=== PATIENT | male | born 1955 | race Caucasian/White ===

== ENCOUNTER 2020-07-20 18:10 | Emergency (ER) | payer OTHER ==
[~2020-07-20] VITALS: Ht 177.8 cm; Wt 77.1 kg
--- OUTSIDE RECORDS SUMMARY | ~2020-07-20 | XMS | Encounter Summary ---
Demographics + + + | Address | [address] | | | [place] [address] | + + + | Home Phone | | + + + | Preferred Language | Unknown | + + + | Marital Status | | + + + | Christianity Affiliation | Unknown | + + + | Race | White | + + + | Ethnic Group | Not or | + + + Author + + + | Author | [facility] | | | and [place] | + + + | Organization | [facility] | | | and [place] | + + + | Address | Unknown | + + + | Phone | Unavailable | + + + Support + + +---------+ + | Name | Relationship | Address | Phone | + + +---------+ + | Millie Clay | ECON | Unknown | | + + +---------+ + | Mariama Schwab | ECON | Unknown | | + + +---------+ + Care Team Providers + +------+ + | Care Ceramics Technician Name | Role | Phone | + +------+ + PCP | Unavailable | + +------+ + Reason for Referral Self-referral (Routine) +--------+ + + + + + | Status | Reason | Specialty | Diagnoses / | Referred By | Referred To | | | | | Procedures | Contact | Contact | +--------+ + + + + + | Closed | Specialty | Physical | Diagnoses | Watson, | [facility] | | | Services | Therapy | Weakness | [facility] Haynes, | [facility]PITAL | | | Required | | Bilateral | MD [address] | PHYSICAL | | | | | carpal | [address] , | THERAPY [address] | | | | | tunnel | [address] | [place] | | | | | syndrome | [place], [place] | [place], [place] | | | | | Ulnar | [address] | [address] | | | | | neuropathy | Phone: | Phone: | | | | | of right | [phone] | [phone] | | | | | upper | Fax: | Fax: | | | | | extremity | [phone] | [phone] | +--------+ + + + + + Reason for Visit + + + | Reason | Comments | + + + | Establish Care | stevens fascial fibromatosis, ulnar nerve | + + + Evaluate & Treat (Routine) +--------+ + + + + + | Status | Reason | Specialty | Diagnoses / | Referred By | Referred To | | | | | Procedures | Contact | Contact | +--------+ + + + + + | Closed | Specialty | Neurology | Diagnoses | | Watson, | | | Services | | Lesion of | Schmidt[place], | Thomas Haynes MD | | | Required | | ulnar nerve, | Angelica K, | [address] | | | | | right upper | PA[address]C [address] | [address] [place] | | | | | limb | [address] | [place], [place] | | | | | [address] | [address] | [address] Phone: | | | | | fascial | [place], | [phone] | | | | | fibromatosis | [place] | Fax: | | | | | (dupuytren) | [address] | [phone] | | | | | Procedures | Phone: | | | | | | Evaluate & | [phone] | | | | | | Treat | Fax: | | | | | | | [phone] | | +--------+ + + + + + Encounter Details +--------+---------+ + + + | Date | Type | Department | Care Team | Description | +--------+---------+ + + + | 02/27/ | Office | [facility] | Thomas Watson MD | Weakness (Primary | | 2020 | Visit | HOSPITAL NEUROLOGY | [address] | Dx); Bilateral | | | | CLINIC [address] | [place] | carpal tunnel | | | | [address] [place], | [address] | syndrome; Ulnar | | | | [place] [address] | | neuropathy of right | | | | [phone] | | upper extremity; | | | | | | Numbness and | | | | | | tingling | +--------+---------+ + + + Social History + +-------+ +--------+------+ | Tobacco Use | Types | Packs/Day | Years | Date | | | | | Used | | + +-------+ +--------+------+ | Never Smoker | | | | | + +-------+ +--------+------+ + +---+---+---+ | Smokeless Tobacco: | | | | | Never Used | | | | + +---+---+---+ + + +---------+ + | Alcohol Use | Drinks/Week | oz/Week | Comments | + + +---------+ + | Yes | 1 Cans of beer | 1.0 | occasionally | + + +---------+ + + + + + | Alcohol Habits | Answer | Date Recorded | + + + + | How often do you have a drink containing | Monthly or less | 02/28/2020 | | alcohol? | | | + + + + | How many drinks containing alcohol do you | 1 or 2 | 02/28/2020 | | have on a typical day when you are | | | | drinking? | | | + + + + | How often do you have six or more drinks on | Never | 02/28/2020 | | one occasion? | | | + + + + + + + | Sex Assigned at | Date Recorded | | | | + + + | Not on file | | + + + documented as of this encounter Last Filed Vital Signs + + + + + | Vital Sign | Reading | Time Taken | Comments | + + + + + | Blood Pressure | 128/74 | 02/28/2020 8:29 AM | | | | | PDT | | + + + + + | Pulse | 86 | 02/28/2020 8:29 AM | | | | | PDT | | + + + + + | Temperature | - | - | | + + + + + | Respiratory Rate | 20 | 02/28/2020 8:29 AM | | | | | PDT | | + + + + + | Oxygen Saturation | 96% | 02/28/2020 8:29 AM | | | | | PDT | | + + + + + | Inhaled Oxygen | - | - | | | Concentration | | | | + + + + + | Weight | 79.4 kg (175 lb) | 02/28/2020 8:29 AM | | | | | PDT | | + + + + + | Height | 177.8 cm (5' 10") | 02/28/2020 8:29 AM | | | | | PDT | | + + + + + | Body Mass Index | 25.11 | 02/28/2020 8:29 AM | | | | | PDT | | + + + + + documented in this encounter Patient Instructions Patient Instructions Thomas Watson MD - 02/28/2020 8:15 AM PDTFormatting of this note mi ght be different from the original. Patient Instructions [facility] Neurology Clinic Dr. Thomas Watson, Neurologist Date:02/28/2020 Name:Gilbert Clay :..1955 Please schedule next follow up appt with Darius in 4-5 months Bilateral carpal tunnel syndrome Right ulnar neuropathy across the elbow Right Dupuytren's contracture You have the following tests/procedures ordered: Orders Placed This Encounter Procedures EMG Study- Upper/Lower Extremity [facility] Physical Therapy, External - AMB Referral Treatment Option- massage, Acupuncture, Over the counter heat patches (icy hot, thermacare, salonpas) , over the counter creams (aspercream, bengay cream, emu oi l), Relaxation therapy, Water therapy, Cortisone shots, Toradol Injections Suggest reading newspapers. magazines, perform word find exercises such as cross word puzz le, and scrabble, other puzzle games like SudHydrophiu, Mahjong. Play computer/mobile applications such as [employer] and [employer] Wrist support at bedtime Any Questions please call GRACE Marquez or Dr. Watson at [facility] Neurology Clinic Understanding Carpal Tunnel Syndrome The carpal tunnel is a narrow space inside the wrist. It is ringed by bone and a band of to ugh tissue called the transverse carpal ligament. A major nerve called the median nerve runs from the forearm into the hand through the carpal tunnel. Tendons also run through the carp al tunnel. With carpal tunnel syndrome, the tendons or nearby tissues within the carpal tunnel may swe ll or thicken. Or the transverse carpal ligament may harden and shorten. This narrows the sp mary lou in the carpal tunnel and puts pressure on the median nerve. This pressure leads to tingl ing and numbness of the hand and wrist. In time, the condition can make even simple tasks [address] to do. What causes carpal tunnel syndrome? Doctors aren t entirely clear why the condition occurs. Certain things may make a person more likely to have it. These include: Being female Being Being overweight Having diabetes or rheumatoid arthritis Symptoms of carpal tunnel syndrome Symptoms often come and go. At first, symptoms may occur mainly at night. Later, they may b e noticed during the day as well. They may get worse with activities such as driving, readin g, typing, or holding a phone. Symptoms can include: Tingling and numbness in the hand or wrist Sharp pain that shoots up the arm or down to the fingers Hand stiffness or cramping, especially in the morning Trouble making a fist Hand weakness and clumsiness Treatment for carpal tunnel syndrome Certain treatments help reduce the pressure on the median nerve and relieve symptoms. [facility] es for treatment may include one or more of the following: Wrist splint. This involves wearing a special brace on the wrist and hand. The splint ho lds the wrist straight, in a neutral position. This helps keep the carpal tunnel as open as possible. Cortisone shots. Cortisone is a medicine that helps reduce swelling. It is injected dire ctly into the wrist. It helps shrink tissues inside the carpal tunnel. This relieves symptom s for a time. Pain medicines. You may take mwoq-sez-rszzmbu or prescription medicines to help reduce s welling and relieve symptoms. Surgery. If the condition doesn t respond to other treatments and doesn t go away on its own, you may need surgery. During surgery, the surgeon cuts the transverse carpal ligam ent to relieve pressure on the median nerve. When to call your healthcare provider Call your healthcare provider right away if you have any of these: Fever of 100.4F (38C) or higher, or as directed Symptoms that don t get better, or get worse New symptoms Date Last Reviewed: 12/13/201519995479-4746 [employer]. [address] [place] [id number]. All righ ts reserved. This information is not intended as a substitute for professional medical care. Always follow your healthcare professional's instructions. What is Cubital Tunnel Syndrome? Cubital tunnel syndrome is a set of symptoms that may occur if the ulnar nerve in your elbo w gets pinched. This may happen if you bend or lean on your elbows often. Your cubital tunnel The cubital tunnel is a groove in a bone near your elbow. This narrow groove provides a pas aristides for the ulnar nerve, one of the main nerves in your arm. The ulnar nerve can cause f unny bone pain if your elbow gets bumped. Your cubital tunnel helps protect this nerve as it passes through your elbow and down to your fingers. Compressing the ulnar nerve Bending your elbow compresses the ulnar nerve inside the cubital tunnel. The nerve can get inflamed (irritated) after constant bending and pinching or after getting hurt. Over time, t his can lead to pain or numbness. The pain is often felt in your ring fingers and little fin gers. Bending your elbow as you hold a phone can cause problems over time. What are its symptoms? Numbness or tingling in the ring fingers and little fingers Loss of finger or hand strength Inability to straighten fingers Sharp, sudden pain when elbow is touched Shrinking of hand muscles The road to healing You can keep cubital tunnel syndrome from flaring up. Keep your arm straight as much as you can, even while sleeping, to prevent pinching of the ulnar nerve. And use phone headsets an d elbow pads. If you still have pain, tell your doctor. Date Last Reviewed: 02/02/201819990932-8131 [employer]. [address] [place] [address]. All righ ts reserved. This information is not intended as a substitute for professional medical care. Always follow your healthcare professional's instructions. Ulnar Nerve Palsy The ulnar nerve travels down the arm from the shoulder to the hand. It controls movement an d feeling in the wrist and hand. Damage to this nerve can cause a condition called ulnar ner ve palsy. A common cause of ulnar nerve palsy is leaning on the elbow for long periods of time. Injur y to the arm or elbow, such as a fracture, can also damage the ulnar nerve. Symptoms of ulnar nerve palsy include: Numbness, tingling, or burning (often described as "pins and needles") Pain Weakness or muscle shrinking in the hand and fingers The treatment depends on the cause of the nerve damage. In some cases, the problem will go away on its own once pressure to the nerve is relieved. Certain tests may be done to help de termine the injury and extent of damage. These include nerve conduction studies (NCS) and el ectromyography (EMG). Splinting the wrist to limit movement may help with healing. If the pr oblem is due to trauma or injury, physical therapy may be prescribed. Corticosteroid injecti ons into the area may reduce swelling and pressure on the nerve. Surgery to repair the nerve may be needed for chronic symptoms that don't respond to simpler treatments. Home care Rest the wrist and arm until normal feeling and strength return. If you were given a splint or sling, wear it as directed. Don't lean on your elbows. If medicines were prescribed for pain or nerve sensations, take them as directed. Follow-up care Follow up with your healthcare provider or as advised by our staff. When to seek medical advice Call your healthcare provider right away if you have any of the following: Increasing arm swelling or pain Numbness or weakness of the arm Symptoms spread to other parts of the body Slurred speech, confusion Trouble speaking, walking, or seeing Date Last Reviewed: 01/03/201819990979-8285 [employer]. [address] [place] [address]. All [facility] ts reserved. This information is not intended as a substitute for professional medical care. Always follow your healthcare professional's instructions. documented in this encounter Progress Notes Thomas Watson MD - 02/28/2020 8:15 AM PDT Patient: Gilbert Clay Medical Record: [id number] Date of Services: 02/28/2020 Referring Doctor: No primary care provider on file. Chief Complaint: Right hand numbness and weakness History of Present Illness: Mr. Clay was a 64-year-old right-handed male, seen for neurologic evaluation, compl aining of 9-month history of right shoulder blade and shoulder pain, dull in nature with int ermittent numbness and paresthesias. He later developed numbness and paresthesias in his ri ght arm with weakness noted in the right hand involving digits 1 5, worse in digits 4 5 with evidence of atrophy. 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 In addition, he is noti melissa some atrophy of his right hand especially in ulnar distribution with evidence of the pat ient's contracture over 3 years at the fourth fifth, palmar, metacarpal region. He denie s any central neck pain, , weight loss, diplopia, blurring vision, dysphagia, odynophagia, g ait instability, and bowel and bladder dysfunction. He recalls having experienced median nerve decompression in [place] with no othe r significant medical problems. However, patient has worked hard throughout his life. He has significant family history of ALS with his father dying at 61 years old and sister amy sage at 61 years old as well. History reviewed. No pertinent past medical history. Social History Socioeconomic History Marital status: Spouse name: Not on file Number of children: Not on file Years of education: Not on file Highest education level: Not on file Occupational History Not on file Social Needs Financial resource strain: Not on file Food insecurity: Worry: Not on file Inability: Not on file Transportation needs: Medical: Not on file Non-medical: Not on file Tobacco Use Smoking status: Never Smoker Smokeless tobacco: Never Used Substance and Sexual Activity Alcohol use: Yes Alcohol/week: 1.0 standard drinks Types: 1 Cans of beer per week Frequency: Monthly or less Drinks per session: 1 or 2 Binge frequency: Never Comment: occasionally Drug use: Yes Types: Marijuana Sexual activity: Not on file Lifestyle Physical activity: Days per week: Not on file Minutes per session: Not on file Stress: Not on file Relationships Social connections: Talks on phone: Not on file Gets together: Not on file Attends anglican service: Not on file Active member of club or organization: Not on file Attends meetings of clubs or organizations: Not on file Relationship status: Not on file Intimate partner violence: Fear of current or ex partner: Not on file Emotionally abused: Not on file Physically abused: Not on file Forced sexual activity: Not on file Other Topics Concern Not on file Social History Narrative Not on file Family History Problem Relation Age of Onset No known problems Mother Other (see comment) Father Review of Systems: Denies headache, earache, nasal catarrh, diplopia, blurring of vision, d ysphagia, odynophagia, sore throat, neck masses, hearing loss, chest pain, palpitations, carlos rtness of breath, cough, hemoptysis, abdominal pain, diarrhea, constipation, bowel or bladde r dysfunction, hematuria, dysuria, lymphadenopathies, echhymoses, rashes, gait ataxia, and h omicidal or suicidal ideations. No current outpatient medications on file. No current facility-administered medications for this visit. No Known Allergies Labs & Diagnostics: No results found for this or any previous visit (from the past 24 hour(s)). No results found. Neurological Examination: Vitals: 02/28/20 0829 BP: 128/74 Pulse: 86 Resp: 20 PainSc: 0 - No pain MENTAL STATUS: The patient is awake, alert, and oriented to time, place, and person. Spee is fluent. Memory, attention, comprehension, and general fund of knowledge are intact. CRANIAL NERVES: Funduscopy revealed distinct disc margins. There are no exudates or hemor rhages noted. Pupils are 3-4 mm, equal and reactive to light and accommodation. Extraocular muscle movements are intact. There are no visual field cuts. There is no nystagmus. There is no facial asymmetry. Facial sensation is intact. Palate elevates symmetrically. Streng th in the trapezius and sternocleidomastoid muscles is normal. Tongue is midline on protrusi on. Hearing loss on the right ear, old MOTOR EXAMINATION: Strength is 5/5 throughout. Tone is normal. SENSORY EXAMINATION: Mildly impaired proprioception and vibratory sense at the toes with d ecreased light touch in a stocking distribution up to the ankles bilaterally. DEEP TENDON REFLEXES: 2+ and symmetric, 1+ Achilles tendon reflexes bilaterally. PLANTAR RESPONSES: Downgoing bilaterally GAIT: Gait and station are normal. Able to tandem gait, Romberg was negative CEREBELLAR EXAMINATION: There is no dysmetria on [id number]-km-[id number] test. MISCELLANEOUS EXAM: Well kept, well nourished, Atraumatic, no evidence of frontal or maxil julissa sinus tenderness, no neck masses, mild tenderness in the paraspinal lumbosacral spine w ith increased pain upon flexion and extension at 5-10, abdomen is soft and nontender, extr emities equally palpable pulses Clinical Impression: Bilateral carpal tunnel syndrome Right ulnar neuropathy across the elbow Right Dupuytren's contracture Peripheral neuropathy, mild, idiopathic, for further evaluation, as evidenced by impaired s ensory modalities and reflexes Plan: Please schedule next follow up appt with Darius in 4-5 months Bilateral carpal tunnel syndrome Right ulnar neuropathy across the elbow Right Dupuytren's contracture You have the following tests/procedures ordered: Orders Placed This Encounter Procedures EMG Study- Upper/Lower Extremity [facility] Physical Therapy, External - AMB Referral Treatment Option- massage, Acupuncture, Over the counter heat patches (icy hot, thermacare, salonpas) , over the counter creams (aspercream, bengay cream, emu oi l), Relaxation therapy, Water therapy, Cortisone shots, Toradol Injections Suggest reading newspapers. magazines, perform word find exercises such as cross word puzz le, and scrabble, other puzzle games like SudHydrophiu, Mahjong. Play computer/mobile applications such as [employer] and [employer] Wrist support at bedtime Any Questions please call GRACE Marquez or Dr. Watson at [facility] Neurology Clinic Thomas Watson MD02/28/20209:03 AM Electronically signed NOTE: Part of this report was transcribed using voice recognition software. Every effort was made to ensure accuracy. However, inadvertent computerize repeater operator errors may be present documented in this encounter Plan of Treatment +--------+---------+ + + + | Date | Type | Specialty | Care Team | Description | +--------+---------+ + + + | 09/04/ | Office | Orthopedic Surgery | Jn Knutson | | 2019 | Visit | | [address] | | | | | | [address] | | | | | | [place] [address] | | | | | | [phone] | | | | | | | | +--------+---------+ + + + + + +--------+ + + | Name | Type | Priori | Associated Diagnoses | Order Schedule | | | | ty | | | + + +--------+ + + | [facility] | Outpatient | Routin | Weakness | Ordered: 02/28/2020 | | Hospital Physical | Referral | e | Bilateral carpal | | | Therapy, External - | | | tunnel syndrome | | | AMB Referral | | | Ulnar neuropathy of | | | | | | right upper | | | | | | extremity | | + + +--------+ + + documented as of this encounter Results EMG Study- Upper/Lower Extremity (06/01/2020 3:45 PM PDT) + + + | Narrative | Performed At | + + + | Thomas Watson | | | 06/01/2020 4:53 PMSee scanned chart: NCS/EMG of the upper | | | and lower extremities demonstrated mild to moderate bilateral median | | | nerve entrapment across the wrists, bilateral ulnar neuropathy across | | | the elbows, mild to moderate on the right and mild on the left, and | | | mild peripheral neuropathy | | + + + + + | Procedure Note | + + | Thomas Watson MD - 06/01/2020 3:45 PM PDT See scanned chart: NCS/EMG of the upper | | and lower extremities demonstrated mild to moderate bilateral median nerve entrapment | | across the wrists, bilateral ulnar neuropathy across the elbows, mild to moderate on the | | right and mild on the left, and mild peripheral neuropathy | + + documented in this encounter Visit Diagnoses + + | Diagnosis | + + | Weakness - Primary Other malaise and fatigue | + + | Bilateral carpal tunnel syndrome Carpal tunnel syndrome | + + | Ulnar neuropathy of right upper extremity Lesion of ulnar nerve | + + | Numbness and tingling Disturbance of skin sensation | + + documented in this encounter
--- OUTSIDE RECORDS SUMMARY | ~2020-07-20 | XMS | Encounter Summary ---
Demographics + + + | Address | [address] | | | [place] [address] | + + + | Home Phone | | + + + | Preferred Language | Unknown | + + + | Marital Status | | + + + | Alevism Affiliation | Unknown | + + + | Race | White | + + + | Ethnic Group | Not or | + + + Author + + + | Author | [facility] | | | and [place] | + + + | Organization | [facility] | | | and [...] Team Providers + +------+ + | Care Clerical Transcriber Name | Role | Phone | + +------+ + PCP | Unavailable | + +------+ + Reason for Visit + + + | Reason | Comments | + + + | Carpal Tunnel | | + + + Encounter Details +--------+---------+ + + + | Date | Type | Department | Care Team | Description | +--------+---------+ + + + | 07/05/ | Office | [facility] | Dilma, | Idiopathic | | 2020 | Visit | [facility] | Karinashonarafael, [address] | peripheral | | | | CLINIC [address] [place], | neuropathy (Primary | | | | [address] [place], | [place] [address] | Dx); Bilateral | | | | [place] [address] | [phone] | carpal tunnel | | | | [phone] | | syndrome; Ulnar | | | | | | neuropathy of right | | | | | | upper extremity | +--------+---------+ + + + Social History [...] + + + | Blood Pressure | 130/74 | 07/05/2020 2:52 PM | | | | | PDT | | + + + + + | Pulse | 84 | 07/05/2020 2:52 PM | | | | | PDT | | + + + + + | Temperature | 36.7 C (98 F) | 07/05/2020 2:52 PM | | | | | PDT | | + + + + + | Respiratory Rate | 18 | 07/05/2020 2:52 PM | | | | | PDT | | + + + + + | Oxygen Saturation | 96% | 07/05/2020 2:52 PM | | | | | PDT | | + + + + + | Inhaled Oxygen | - | - | | | Concentration | | | | + + + + + | Weight | 76.7 kg (169 lb) | 07/05/2020 2:52 PM | | | | | PDT | | + + + + + | Height | 177.8 cm (5' 10") | 07/05/2020 2:52 PM | | | | | PDT | | + + + + + | Body Mass Index | 24.25 | 07/05/2020 2:52 PM | | | | | PDT | | + + + + + documented in this encounter Patient Instructions Patient Instructions Darius Perera FNP - 07/05/2020 3:00 PM PDTFormatting of this no te might be different from the original. Carpal Tunnel Syndrome Carpal tunnel syndrome is a painful condition of the wrist and arm. It is caused by pressur e on the median nerve. The median nerve is one of the nerves that give feeling and movement to the hand. It passes through a tunnel in the wrist called the carpal tunnel. This tunnel i s made up of bones and ligaments. Narrowing of this tunnel or swelling of the tissues inside the tunnel puts pressure on the median nerve. This causes numbness, pins and needles, or el ectric shooting pains in your hand and forearm. Often the pain is worse at night and may wak e you when you are asleep. Carpal tunnel syndrome may occur during and with use of control pills. It i s more common in workers who must often bend their wrists. It is also common in people who w ork with power tools that cause strong vibrations. Home care Rest the painful wrist. Avoid repeated bending of the wrist back and forth. This puts pr essure on the median nerve. Avoid using power tools with strong vibrations. If you were given a splint, wear it at night while you sleep. You may also wear it durin g the day for comfort. Move your fingers and wrists often to prevent stiffness. Elevate your arms on pillows when you lie down. Try using the unaffected hand more. Try not to hold your wrists in a bent, downward position. Sometimes changes in the work place may ease symptoms. If you type most of the day, it m ay help to change the position of your keyboard or add a wrist support. Your wrist should be in a neutral position and not bent back when typing. You may tammubp-hie-crfjocf pain medicine to treat pain and inflammation, unless anoth er medicine was prescribed.Anti-inflammatory pain medicines, such as ibuprofen or naproxen may be more effective than acetaminophen, which treats pain, but not inflammation.If you have chronic liver or kidney disease or ever had a stomach ulcer or gastrointestinal bleedin g, talk with your healthcare provider before using these medicines. Opioid pain medicine will only give temporary relief and does not treat the problem. If pain continues, you may need a shot of a steroid drug into your wrist. If the above methods fail, you may need surgery. This will open the carpal tunnel and re lease the pressure on the trapped nerve. Follow-up care Follow up with your healthcare provider, oras advised. If X-rays were taken,you will be notified of any new findings that may affect your care. When to seek medical advice Call your healthcare provider right away if any of these occur: Pain not improving with the above treatment Fingers or hand become cold, blue, numb, or tingly Your whole arm becomes swollen or weak N(i)² last reviewed this educational content on 02/02/201819990691-1156 [employer]. [address] [place] [address]. All righ ts reserved. This information is not intended as a substitute for professional medical care. Always follow your healthcare professional's instructions. Carpal Tunnel Syndrome Prevention Tips Carpal tunnel syndrome is a painful condition in the hand and wrist. It occurs when there i s too much pressure on the median nerve at the wrist. The median nerve runs from your forear m to the palm of your hand. It may get squeezed or pressed when it passes through the carpal tunnel from your wrist to your hand. You may then feel numbness, tingling, pain, or weaknes s in your hand and up your forearm. Doing the same hand activities over and over canput you at higher risk for carpal tunnel syndrome. But you can reduce your risk. Learn how to change the way you use your hands. Nolan villegas are tips for at home and on the job. Also follow the hand and wrist safety policies at you r workplace. Keep your wrist in a straight (neutral) position when exercising. Keep your wrist in neutral Keep a straight (neutral)wrist position as often as you can. Don t use your wrist in a bent (flexed) position for long periods of time. This includes extended or twisted positions . When you sleep, don't have your wrist flexed (don't sleep all curled up on your side). And don't put extra pressure on your wrist for long periods of time (don't sleep onyour stomac h with your hands under you). 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 This can put stres s on your wrist. When you can, use your whole hand and all its fingers to grasp an object. Minimize repetition Don t move your arms or hands the same way for long periods of time. And don't hold an ob ject in the same way for long periods of time. Even simple, light tasks can cause injury thi s way. Instead,switch tasks or switch hands. Rest your hands Give your hands a break from time to time with a rest. Even a few minutes once an hour can help. Reduce speed and force Slow down when you do a forceful, repetitive motion. This gives your wrist time to recover from the effort. Use power tools to help reduce the force. Strengthen the muscles Weak muscles may lead to a poor wrist or arm position. Exercises will make your hand and ar m muscles stronger. This can help you keep a better position. N(i)² last reviewed this educational content on 10/05/201719996430-9812 [employer]. [address] [place] [address]. All righ ts reserved. This information is not intended as a substitute for professional medical care. Always follow your healthcare professional's instructions. Understanding Carpal Tunnel Syndrome The carpal tunnel [...] on the median nerve and relieve symptoms. [facility] es for treatment may include one [...] a time. Pain medicines. You may take migx-dnh-oitstan or prescription medicines to help reduce s [...] get better, or get worse New symptoms [employer] last reviewed this educational content on 12/13/201519992708-5147 [employer]. [address] [place] [address]. All righ ts reserved. This information is not intended as a substitute for professional medical care. Always follow your healthcare professional's instructions. documented in this encounter Progress Notes Darius Perera FNP - 07/05/2020 3:00 PM PDT Patient: Gilbert Clay Medical Record: [id number] Date of Services: 07/05/2020 Referring Doctor: No primary care provider on file. Chief Complaint: Carpal tunnel syndrome, ulnar neuropathy, peripheral neuropathy History of Present Illness: The patient presents to the Neurology Clinic today for follow u p. Patient has a history of numbness and paresthesias in his bilateral hands, right side worse than left. The patient reports numbness and tingling in digits 1 5 on the right side, wo rse in digits 4 5 with evidence of atrophy. The patient has noted progressive weakness of the right hand and difficulty making a fist. The patient is also noticed some atrophy of t he right hand, especially in the ulnar distribution. 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 Patient did have an EMG/NCS of all 4 extremities in A ug2019 which showed mild to moderate bilateral median nerve entrapment across the wrist, bilateral ulnar neuropathy across the elbows, mild to moderate on the right and mild on the left. Patient was referred to orthopedics and is scheduled to see Dr. Knutson on September 04, 2020. The patient also has a history of peripheral neuropathy. EMG/NCS done in May 2020 showe d mild peripheral neuropathy in his bilateral lower extremities. The patient reports some n umbness and tingling but denies any pain at this time. The patient does use marijuana which he reports helps him with his pain. Encounter Problem List Idiopathic peripheral neuropathy (Primary) Bilateral carpal tunnel syndrome Overview: Treatment: PT/OT 06/01/20 EMG BUE/BLE:demonstrated mild to moderate bilateral median nerve entrapment across the wrists, bilateral ulnar neuropathy across the elbows, mild to moderate on the right and mild on the left, and mild peripheral neuropathy Ulnar neuropathy of right upper extremity Overview: Treatment: PT/OT 06/01/20 EMG BUE/BLE:demonstrated mild to moderate bilateral median nerve entrapment across the wrists, bilateral ulnar neuropathy across the elbows, mild to moderate on the right and mild on the left, and mild peripheral neuropathy Past Surgical History: Procedure Laterality Date CARPAL TUNNEL RELEASE No Known Allergies lisinopril Review of Symptoms: CONSTITUTIONAL: No weight loss, fever, chills, weakness or fatigue. HEENT: Eyes: No visual loss, blurred vision, double vision or yellow sclerae. Ears, Nose, Throat: No hearing loss, sneezing, congestion, runny nose or sore throat. SKIN: No rash or itching. CARDIOVASCULAR: No chest pain, chest pressure or chest discomfort. No palpitations or edema . RESPIRATORY: No shortness of breath, cough or sputum. GASTROINTESTINAL: No anorexia, nausea, vomiting or diarrhea. No abdominal pain or blood. GENITOURINARY: No burning on urination. NEUROLOGICAL: No headache, dizziness, syncope, paralysis, ataxia. No change in bowel or tanya dder control. + Bilateral carpal tunnel syndrome, bilateral ulnar neuropathy, peripheral chucky ropathy. MUSCULOSKELETAL: No muscle, back pain, joint pain or stiffness. PSYCHIATRIC: No depression or anxiety. Neurological Examination: Vitals: 07/05/20 1452 BP: 130/74 Pulse: 84 Resp: 18 Temp: 36.7 C (98 F) PainSc: 0 - No pain General Appearance: The patient is alert and in no acute distress. Mental status: The patient is alert, attentive, and oriented. Speech is clear and fluent with good repetit ion, comprehension, and naming. Cranial nerves: CN II: Visual meadows are full to confrontation. Fundoscopic exam is normal with sharp discs and no vascular changes. Pupils are 4 mm and briskly reactive to light with accomodation. CN III, IV, : Gaze in conjugate. No blurred or double vision. No visual field cuts. EOM intact. CN V: Facial sensation is intact. CN VII: Face is symmetric with normal eye closure and smile. CN VII: Hearing is normal to rubbing fingers CN IX, X: Palate elevates symmetrically. Phonation is normal. CN XI: Head turning and shoulder shrug are intact CN XII: Tongue is midline with normal movements and no atrophy. Motor: There is no pronator drift of out-stretched arms. Muscle bulk and tone are normal. Strength is 5/5 bilaterally. Reflexes: Reflexes are trace to absent throughout Sensory: Light touch, pinprick, position sense, and vibration sense are impaired in bilateral lower extremities in stocking distribution up to the ankles. + Tinel's and Phalen signs bilateral ly at the wrists Coordination: Rapid alternating movements and fine finger movements are intact. There is no dysmetria on gfeedf-wf-rado and sspk-ndpf-acpn. There are no abnormal or extraneous movements. Romberg is absent. Gait/Stance: Posture is normal. Wide-based stance, normal armswing. Mild difficulty with tandem gait Clinical Impression: ICD-10-CM ICD-9-CM 1. Idiopathic peripheral neuropathy G60.9 356.9 2. Bilateral carpal tunnel syndrome G56.03 354.0 3. Ulnar neuropathy of right upper extremity G56.21 354.2 Plan: Peripheral neuropathy: Patient reports some mild numbness and tingling in his bilateral low er extremities but denies any pain at this time. He reports that he does not have any diffi culties with balance or any frequent falls due to this loss of sensation. The patient repor ts that this is baseline for him he is satisfied. Bilateral carpal tunnel syndrome/ulnar neuropathy: The patient has been referred to see valerie fuchs and is scheduled for September 04, 2020. Continue with plan to follow-up with orthop edics to discuss surgical intervention. We discussed the use of a nocturnal wrist splints t o help with exacerbation of symptoms. Patient has completed physical therapy at this time. Plan to follow-up as needed after he consults with orthopedics. LAXMI Amaya Electronically signed This note was transcribed using voice recognition software. There may be speech recognitio n errors which escaped detection during review. documented in thi s encounter Plan of Treatment +--------+---------+ + + + | Date | Type | Specialty | Care Team | Description | +--------+---------+ + + + | 09/04/ | Office | Orthopedic Surgery | Jn Knutson | | 2019 | Visit | | [address] | | | | | | [address] | | | | | | [place] [address] | | | | | | [phone] | | | | | | | | +--------+---------+ + + + documented as of this encounter Visit Diagnoses + + | Diagnosis | + + | Idiopathic peripheral neuropathy - Primary Unspecified hereditary and idiopathic | | peripheral neuropathy | + + | Bilateral carpal tunnel syndrome Carpal tunnel syndrome | + + | Ulnar neuropathy of right upper extremity Lesion of ulnar nerve | + + documented in this encounter
--- OUTSIDE RECORDS SUMMARY | ~2020-07-20 | XMS | Encounter Summary ---
Demographics + + + | Address | [address] | | | [place] [address] | + + + | Home Phone | | + + + | Preferred Language | Unknown | + + + | Marital Status | | + + + | Adventist Affiliation | Unknown | + + + | Race | White | + + + | Ethnic Group | Not or | + + + Author + + + | Author | [facility] | | | and [place] | + + + | Organization | [facility] | | | and [...] Team Providers + +------+ + | Care Front Tender Name | Role | Phone | + +------+ + PCP | Unavailable | + +------+ + Reason for Referral Evaluate & Treat (Routine) + + + + + + + | Status | Reason | Specialty | Diagnoses / | Referred By | Referred To | | | | | Procedures | Contact | Contact | + + + + + + + | Authorized | Specialty | Orthopedic | Diagnoses | Watson, | [facility] | | | Services | Surgery | Bilateral | Thomas R, | Orthopedic | | | Required | | carpal | MD [address] | | | | | tunnel | [address], | [place] | | | | | syndrome | [place] [address] [place] | [place], [place] | | | | | Dupuytren's | [place], [place] | [address] | | | | | contracture | [address] | Phone: | | | | | of right | Phone: | [phone] | | | | | hand | [phone] | Fax: | | | | | Procedures | Fax: | [phone] | | | | | [place] | [phone] | | + + + + + + + Reason for Visit + + + | Reason | Comments | + + + | Procedure | EMG-upper & lower extremites | + + + Encounter Details +--------+ + + + + | Date | Type | Department | Care Team | Description | +--------+ + + + + | 06/01/ | Procedure | [facility] | Thomas Watson MD | [facility] | | 2020 | visit | [facility] | [address] [address] | contracture of right | | | | CLINIC [address] | [place] | hand (Primary Dx); | | | | [address] [place] [place], | [address] | Weakness; Bilateral | | | | [place] [address] | | carpal tunnel | | | | [phone] | | syndrome; Numbness | | | | | | and tingling | +--------+ + + + + Social History + +-------+ [...] + + + | Blood Pressure | 142/100 | 06/01/2020 3:18 PM | | | | | PDT | | + + + + + | Pulse | 80 | 06/01/2020 3:18 PM | | | | | PDT | | + + + + + | Temperature | 36 C (96.8 F) | 06/01/2020 3:18 PM | | | | | PDT | | + + + + + | Respiratory Rate | 20 | 06/01/2020 3:18 PM | | | | | PDT | | + + + + + | Oxygen Saturation | 96% | 06/01/2020 3:18 PM | | | | | PDT | | + + + + + | Inhaled Oxygen | - | - | | | Concentration | | | | + + + + + | Weight | 77.6 kg (171 lb) | 06/01/2020 3:18 PM | | | | | PDT | | + + + + + | Height | 177.8 cm (5' 10") | 06/01/2020 3:18 PM | | | | | PDT | | + + + + + | Body Mass Index | 24.54 | 06/01/2020 3:18 PM | | | | | PDT | | + + + + + documented in this encounter Procedure Notes Thomas Watson MD - 06/01/2020 3:45 PM PDTAssociated Order(s): EMG STUDYProcedure(s): EMG STUDYPre-Procedure Diagnose(s): Weakness; Bilateral carpal tunnel syndrome; Numbness and ti nglingSee scanned chart: NCS/EMG of the upper and lower extremities demonstrated mild to mod erate bilateral median nerve entrapment across the wrists, bilateral ulnar neuropathy across the elbows, mild to moderate on the right and mild on the left, and mild peripheral neuropa thy documented in this e ncounter Plan of Treatment +--------+---------+ + + + | Date | Type | Specialty | Care Team | Description | +--------+---------+ + + + | 09/04/ | Office | Orthopedic Surgery | Jn Knutson | | 2019 | Visit | | [facility] [address] | | | | | | [address] | | | | | | [place] [address] | | | | | | [phone] | | | | | | | | +--------+---------+ + + + + + +--------+ + + | Name | Type | Priori | Associated Diagnoses | Order Schedule | | | | ty | | | + + +--------+ + + | * [facility] | Outpatient | Routin | Bilateral carpal | Ordered: 06/01/2020 | | [facility] | Referral | e | tunnel syndrome | | | Referral | | | Dupuytren's | | | | | | contracture of right | | | | | | hand | | + + +--------+ + + documented as of this encounter Procedures + +--------+ + + + | Procedure Name | Priori | Date/Time | Associated Diagnosis | Comments | | | ty | | | | + +--------+ + + + | EMG STUDY | Routin | 06/01/2020 | Weakness | Results for this | | | e | 3:45 PM | Bilateral carpal | procedure are in the | | | | PDT | tunnel syndrome | results section. | | | | | Numbness and | | | | | | tingling | | + +--------+ + + + | EMG STUDY | Routin | 06/01/2020 | Weakness | Results for this | | | e | 3:45 PM | Bilateral carpal | procedure are in the | | | | PDT | tunnel syndrome | results section. | | | | | Numbness and | | | | | | tingling | | + +--------+ + + + documented in this encounter Visit Diagnoses + + | Diagnosis | + + | Dupuytren's contracture of right hand - Primary Contracture of palmar fascia | + + | Weakness Other malaise and fatigue | + + | Bilateral carpal tunnel syndrome Carpal tunnel syndrome | + + | Numbness and tingling Disturbance of skin sensation | + + documented in this encounter
--- OUTSIDE RECORDS SUMMARY | ~2020-07-20 | XMS | Clinical Summary ---
Demographics + + + | Address | [address] | | | [place] [address] | + + + | Home Phone | | + + + | Preferred Language | Unknown | + + + | Marital Status | | + + + | Adventist Affiliation | Unknown | + + + | Race | White | + + + | Ethnic Group | Not or | + + + Author + + + | Author | [facility] | | | and [place] | + + + | Organization | [facility] | | | and [place] | + + + | Address | Unknown | + + + | Phone | Unavailable | + + + Support + + +---------+ + | Name | Relationship | Address | Phone | + + +---------+ + | Millie Clay | ECON | Unknown | | + + +---------+ + | Mariamajacki Schwab | ECON | Unknown | | + + +---------+ + Care Team Providers + +------+ + | Care Ophthalmology Assistant Name | Role | Phone | + +------+ + PCP | Unavailable | + +------+ + Allergies No Known Allergies Medications + +-----+ +---------+------+------+-------+ | Medication | Sig | Dispensed | Refills | Star | End | Statu | | | | | | t | Date | s | | | | | | Date | | | + +-----+ +---------+------+------+-------+ | lisinopril | | | 0 | 05/06 | | Activ | | (PRINIVILSUESTRIL) | | | | 04/23 | | e | | 20 mg tablet | | | | 20 | | | + +-----+ +---------+------+------+-------+ Active Problems + + + | Problem | Noted Date | + + + | Bilateral carpal tunnel syndrome | 02/28/2020 | + + + + + | Overview: Treatment: PT/OT 06/01/20 EMG | | BUE/BLE:demonstrated mild to moderate bilateral median nerve | | entrapment across the wrists, bilateral ulnar neuropathy across | | the elbows, mild to moderate on the right and mild on the left, | | and mild peripheral neuropathy | + + + + + | Ulnar neuropathy of right upper extremity | 02/28/2020 | + + + + + | Overview: Treatment: PT/OT 06/01/20 EMG | | MARISOL/KATIE:demonstrated mild to moderate bilateral median nerve | | entrapment across the wrists, bilateral ulnar neuropathy across | | the elbows, mild to moderate on the right and mild on the left, | | and mild peripheral neuropathy | + + Encounters +--------+ + + + + | Date | Type | Specialty | Care Team | Description | +--------+ + + + + | 07/05/ | Office | Neurology | Dilma, | Idiopathic | | 2019 | Visit | | LAXMI Mccoy | peripheral | | | | | | neuropathy (Primary | | | | | | Dx); Bilateral | | | | | | carpal tunnel | | | | | | syndrome; Ulnar | | | | | | neuropathy of right | | | | | | upper extremity | +--------+ + + + + | 06/01/ | Procedure | Neurology | Thomas Watson MD | [facility]'s | | 2019 | visit | | | contracture of right | | | | | | hand (Primary Dx); | | | | | | Weakness; Bilateral | | | | | | carpal tunnel | | | | | | syndrome; Numbness | | | | | | and tingling | +--------+ + + + + from Last 3 Months Family History + + +------+ + | Medical History | Relation | Name | Comments | + + +------+ + | Other (see comment) | Father | | | + + +------+ + | No known problems | Mother | | | + + +------+ + + +------+ + + | Relation | Name | Status | Comments | + +------+ + + | Father | | | | + +------+ + + | Mother | | Alive | | + +------+ + + Social History + +-------+ +--------+------+ [...] on file | | + + + Last Filed Vital Signs + + + [...] | | + + + + + Plan of Treatment +--------+---------+ + + + | Date | Type | Specialty | Care Team | Description | +--------+---------+ + + + | 09/04/ | Office | Orthopedic Surgery | Jn Knutson | | | 2019 | Visit | | [address] | | | | | | [address] | | | | | | [place] [address] | | | | | | [phone] | | | | | | | | +--------+---------+ + + + + + + + + | Health Maintenance | Due Date | Last | Comments | | | | Done | | + + + + + | Hepatitis C | | | | | Screening | 6 | | | + + + + + | Med Mgmt: Cr | | | | | | 6 | | | + + + + + | Med Mgmt: K | | | | | | 6 | | | + + + + + | Medication | | | | | Management | 6 | | | + + + + + | Colorectal Cancer | | | | | Screening | 6 | | | | (Colonoscopy) | | | | + + + + + | Vaccine: Zoster (1 | | | | | of 2) | 6 | | | + + + + + | Vaccine: | | 02/04/20 | | | Dtap/Tdap/Td (2 - | 6 | 16 | | | Td) | | | | + + + + + | Vaccine: Influenza | Completed | 06/26/20 | | | | | 20 | | + + + + + Procedures + +--------+ + + + | [...] | | + +--------+ + + + from Last 3 Months Results EMG Study- Upper/Lower Extremity (06/01/2020 3:45 PM PDT) + + + | Narrative | Performed At | + + + | Thomas Watson, | | | 06/01/2020 4:53 PMSee scanned [...] and mild peripheral neuropathy | + + from Last 3 Months Insurance + +--------+ +--------+ +---------+--------+ | Payer | Benefi | Subscriber | Effect | Phone | Address | Type | | | t Plan | ID | sangeeta | | | | | | / | | Dates | | | | | | Group | | | | | | + +--------+ +--------+ +---------+--------+ | [employer] | [employer] | [id number] | | [phone] | | Medica | | MEDICAID HMO | HEALTH | | 020-Pr | 1 | | id | | | MDCD | | esent | | | | | | HMO OR | | | | | | + +--------+ +--------+ +---------+--------+ + +--------+ +--------+ + + | Guarantor Name | Accoun | Relation to | Date | Phone | Billing Address | | | t Type | Patient | of | | | | | | | | | | + +--------+ +--------+ + + | Gilbert Clay | Person | Self | [birth year] | [address] | | | al/Fam | | 6 | [phone] | [place] | | | margarita | | | 2 (Home) | [phone] | + +--------+ +--------+ + + Advance Directives + + + + + | Type | Date Recorded | Patient | Explanation | | | | Structural Rigger | | + + + + + | Power of | | | | | Grader Operator | | | | + + + + + | Advance | | | | | Directive | | | | + + + + +
[2020-07-20] MEDS ORDERED: LISINOPRIL20 MG PO (18:24)
== END 2020-07-20 20:45 | disposition home or self-care (01) ==
LOC: ED 18:10
DX: K40.90 Unilateral inguinal hernia, without obstruction or gangrene, not specified as recurrent (principal); I10 Essential (primary) hypertension; Z79.899 Other long term (current) drug therapy
CPT/HCPCS: 99283

== ENCOUNTER 2020-11-29 07:57 | Day surgery (SDC) | payer OTHER ==
[~2020-11-29] VITALS: Ht 177.8 cm; Wt 81.8 kg
[~2020-11-29 07:57] MED LIST: LISINOPRIL20 MG PO
--- NOTE | 2020-11-29 10:42 | NUR ---
11/29/20 1042 Cindy Sánchez 1027 PATIENT ARRIVES TO PACU SLEEPING, DOES NOT RESPOND TO VERBAL STIMULI. RESP EVEN AND UNLABORED, ROOM AIR SATS >93%. PATIENT'S GOWN AND PILLOW ARE SATURATED IN PERSPIRATION AND COLD. GOWN CHANGED, WARM BLANKETS GIVEN. 1040 PATIENT SLEEPING. AWAKENS WITH VERBAL STIMULI, BACK TO SLEEP WHEN NOT STIMULATED. RESP EVEN AND UNLABORED, LOUD SNORING ON/OFF.
--- NOTE | 2020-11-30 09:00 | OR ---
[facility] [address], [place] [address] Signed DATE OF OPERATION: 11/29/2020 SURGEON: Manav Gil MD PREOPERATIVE DIAGNOSIS: Maternal grandfather with colon cancer in his late 60s or early 70s. POSTOPERATIVE DIAGNOSES: 1. 4 mm polyp, proximal right colon (sessile). 2. 8 mm polyp, proximal right colon (pedunculated). 3. 15 mm pedunculated polyp at 32 cm (tattoo). 4. Moderate sigmoid diverticulosis. PROCEDURE: Colonoscopy with snare polypectomy, hot biopsy and injection of tattoo. ESTIMATED BLOOD LOSS: None. INDICATIONS: Bill is a 65-year-old gentleman, asked to see me with two issues. He does have a right inguinal hernia that we are planning to fix here in the weeks ahead. In addition, he has never had a previous colonoscopy. He explained that his maternal grandfather of colon cancer in his late 60s or very early 70s. Bill says he has no lower GI complaints. However, I have helped his with a couple of colonoscopies. Consequently, they are familiar with this process. I gave him a booklet on colonoscopy and we have looked at that together in the office. He understands the nature of the test along with the risks including, but not limited to gas bloating, crampy abdominal pain, bleeding, perforation requiring surgery, and missed diagnosis. He also understands the need for IV conscious sedation. He had expressed and understanding wished to proceed. PROCEDURE NOTE: Bill was taken into our endoscopy suite and placed in the left lateral decubitus position. He was given a total of 10 mg of Versed and 200 mcg of fentanyl. Even then, Bill would very quickly awaken and he was quite diaphoretic from head to toe, his socks were wet, even had sweat on the floor, consequently in the future I think he would be much better served with monitored anesthesia care and infusion of propofol. Overall, his prep was generally good. He might benefit from some additional prep in the future as well. Digital rectal exam had been performed and this was unremarkable. The scope Electronically Signed By: MANAV GIL MD 11/30/20 0900 PATIENT NAME: BILL MENEZES OPERATIVE REPORT DATE OF : 57 REPORT #: [id number] PHYSICIAN: MANAV GIL MD PCP: ORLY LONG REPORT IS CONFIDENTIAL AND NOT TO BE RELEASED WITHOUT AUTHORIZATION [facility] [address], [place] [address] Signed had been introduced and advanced into the cecum under direct visualization of camera. It took extra sedation and abdominal compression in order to advance the scope. Again, Bill was moderately uncomfortable. We could easily see the appendiceal orifice and the ileocecal valve. We had taken pictures throughout for photodocumentation. The scope was slowly withdrawn. He had two polyps just opposite to ileocecal valve in the proximal right colon. One was quite small about 4 mm in size. It was sessile and easily removed with hot biopsy forceps. The polyp right next to it was about 8 mm and pedunculated. It was easily removed with the snare and suctioned through the scope. The scope was then slowly withdrawn. We know that he has moderate to severe sigmoid diverticulosis. He has some angulation just above the rectosigmoid junction. That is the most difficult area and immediate to above that at 32 cm was this 15 mm pedunculated polyp. We took it out in two pieces with the help of a hot snare. We placed a tattoo at the base of that polyp. After this, the scope was withdrawn back into the rectum. The rectum was unremarkable. Upon retroflexion of scope, no significant pathology noted above the anal canal. After this, the gas was suctioned out and the colonoscope removed. Overall, Bill tolerated procedure. RECOMMENDATIONS: I will see Bill back in my office in 7 to 14 days to review his results. He should consider a double bowel prep in the future along with monitored anesthesia care with propofol. He should consider a short interval colonoscopy somewhere from a few months out to about a year or so particularly with respect to the polyp at 32 cm. Manav Gil MD ALB/MODL /[id number] cc: MD Orly Spear NP Copies: MANAV GIL MD Electronically Signed By: MANAV GIL MD 11/30/20 0900 PATIENT NAME: BILL MENEZES OPERATIVE REPORT DATE OF : 57 REPORT #: [id number] PHYSICIAN: MANAV GIL MD PCP: ORLY LONG REPORT IS CONFIDENTIAL AND NOT TO BE RELEASED WITHOUT AUTHORIZATION [address] [address] Signed ~ Electronically Signed By: MANAV GIL MD 11/30/20 0900 PATIENT NAME: CLIFBILL OPERATIVE REPORT DATE OF : 57 REPORT #: [id number] PHYSICIAN: MANAV GIL MD PCP: ORLY LONG REPORT IS CONFIDENTIAL AND NOT TO BE RELEASED WITHOUT AUTHORIZATION
--- NOTE | 2020-12-05 10:52 | PATH ---
[facility] [address] [place], [place] [address] Signed SPECIMEN(S): A DESCENDING COLON POLYP AT 32 CM SPECIMEN(S): B RIGHT PROXIMAL COLON POLYP SPECIMEN SOURCE: A. DESCENDING COLON POLYP AT 32 CM B. RIGHT PROXIMAL COLON POLYP CLINICAL HISTORY: Screening. Family history of colon CA. MICROSCOPIC DESCRIPTION: Histologic sections of all submitted blocks are examined by light microscopy. Pancytokeratin (AE1/AE3) performed on specimen B highlights the colonic epithelium and is negative for infiltrative carcinoma. These findings, together with the gross examination, support the pathologic diagnosis. FINAL PATHOLOGIC DIAGNOSIS: A. Colon, descending, polyp at 32 cm, polypectomy: - Tubular adenoma. - Negative for high-grade dysplasia or invasive carcinoma. B. Colon, proximal ascending, polyp, polypectomy: - Fragments of tubular adenoma. - Negative for high-grade dysplasia or invasive carcinoma. COMMENT: As part of [facility] Quality Improvement Program, part B of this case was reviewed by another member of our pathology staff. NAL:cml:C2NR GROSS DESCRIPTION: Two specimens are received in two containers, labeled "BM." A. The specimen, labeled "BM, descending colon polyp at 32 cm," is received in formalin and consists of one higuera soft tissue fragment that measures 1.2 cm in greatest dimension. It shows a white stalk that measures 0.5 cm in diameter. The stalk is inked and specimen serially sectioned. The specimen is entirely submitted in cassette (A1). B. The specimen, labeled "BM, proximal ascending colon polyp," is received in formalin and consists of multiple higuera soft tissue fragments that measure 2.2 x 1.7 x 0.4 cm aggregate. The specimen is entirely submitted in cassette (B1). JS (under the direct supervision of a pathologist) PATIENT NAME: BILL MENEZES PATHOLOGY DATE OF : 57 REPORT #: [id number] PHYSICIAN: TIFFANIE PATHOLOGY PCP: BLANQUITA LONG NP REPORT IS CONFIDENTIAL AND NOT TO BE RELEASED WITHOUT AUTHORIZATION [facility] [address] [place] [address] Signed The Gross Description was prepared using a voice recognition system. The report was reviewed for accuracy; however, sound-alike word errors, addition and/or deletions may occur. If there is any question about this report, please contact Client Services. PERFORMING LABORATORY: The technical component was performed by [facility] [address] (Chain Saw Driver: Lesli Gloria MD; CLIA# [id number]). Professional interpretation was performed by [facility], [address] [address] (CLIA# [id number]). Diagnostician: Tonja Balderas MD Pathologist Electronically Signed 12/05/2020 Copies: ~ PATIENT NAME: BILL MENEZES PATHOLOGY DATE OF : 57 REPORT #: [id number] PHYSICIAN: TIFFANIE ESPINOZA PCP: BLANQUITA LONG NP REPORT IS CONFIDENTIAL AND NOT TO BE RELEASED WITHOUT AUTHORIZATION
== END 2020-11-29 11:30 | disposition home or self-care (01) ==
LOC: OPS 07:57 → DS 07:57 → OPS 09:45
PROVIDERS: ATTEND Colon & Rectal Surgery
PROC: 0DBN8ZX Excision of Sigmoid Colon, Via Natural or Artificial Opening Endoscopic, Diagnostic (ICD-10-PCS; 2020-11-29)
PROC: 0DBK8ZX Excision of Ascending Colon, Via Natural or Artificial Opening Endoscopic, Diagnostic (ICD-10-PCS; principal; 2020-11-29 09:45)
DX: Z12.11 Encounter for screening for malignant neoplasm of colon (principal); D12.2 Benign neoplasm of ascending colon; D12.4 Benign neoplasm of descending colon; K57.30 Diverticulosis of large intestine without perforation or abscess without bleeding; K40.90 Unilateral inguinal hernia, without obstruction or gangrene, not specified as recurrent; I10 Essential (primary) hypertension; Z80.0 Family history of malignant neoplasm of digestive organs
CPT/HCPCS: 88305; 88342; 99153; G0500; J2250; J3010; J7121

== ENCOUNTER 2021-01-16 11:24 | Emergency (ER) | payer OTHER ==
[~2021-01-16] VITALS: Ht 177.8 cm; Wt 81.7 kg
== END 2021-01-16 13:27 | disposition home or self-care (01) ==
LOC: ED 11:24
DX: K40.90 Unilateral inguinal hernia, without obstruction or gangrene, not specified as recurrent (principal); I10 Essential (primary) hypertension; Z79.899 Other long term (current) drug therapy
CPT/HCPCS: 99283

== ENCOUNTER 2021-03-21 12:05 | Emergency (ER) | payer OTHER ==
[~2021-03-21] VITALS: Ht 177.8 cm; Wt 81.7 kg
== END 2021-03-21 14:08 | disposition home or self-care (01) ==
LOC: ED 12:05
DX: K40.90 Unilateral inguinal hernia, without obstruction or gangrene, not specified as recurrent (principal); I10 Essential (primary) hypertension; Z79.899 Other long term (current) drug therapy
CPT/HCPCS: 99283

== ENCOUNTER 2021-04-03 08:50 | Day surgery (SDC) | payer OTHER ==
[~2021-04-03] VITALS: Ht 177.8 cm; Wt 76.2 kg
--- NOTE | 2021-04-03 09:46 | NUR ---
YOLANDA MAGAÑA TO BEDSIDE TO DISCUSS PLAN OF CARE. PT VERBALIZES UNDERSTANDING OF PLAN OF CARE AND PROCEEDURE. PRE OP ABX SCANNED. PT TO OR WITH FRONT OFFICE SUPERVISOR. NO ADDITIONAL REQUESTS OR COMPLAINTS. FAMILY ANTICIPATING CALL AFTER PROCEEDURE IS COMPLETED.
--- NOTE | 2021-04-03 11:43 | NUR ---
04/03/21 1143 Marily Nielsen 1137-PATIENT ARRIVED TO PACU ON 6L MASK NONAROUSABLE. RN HOLDING JAW TO MAINTAIN OPEN AIRWAY. ORAL AIRWAY IN PLACE RR EVEN. SR IVF INFUSING. DRESSING CDI TO RIGHT GROIN. ICE PACK IN PLACE. 1141-PATIENT REMAINS NONAROUSABLE MAINTAING OWN AIRWAY ORAL AIRWAY IN PLACE.
--- NOTE | 2021-04-03 12:20 | NUR ---
PT ARRIVED FROM PACU. REPORT RECEIVED FROM GRACE SAGASTUME. PT AWAKE, ALERT AND ANSWERING QUESTIONS APPROPRIATLY. PT RPEORTS 1/10 PAIN AND DENIES NEED FOR PAIN MEDICAITON AT THIS TIME. PT DENIES NAUSEA. GAUZE DRESSING TO RIGHT INGUINAL AREA C/D/I. PT TOLERATING PO FLUIDS, REQUESTS PUDDING, PUDDING PROVIDED. PTS DAUGHTER, SANDHYA, CALLED AND STATES SHE WILL ARRIVE SHORTLY. PT DENIES ADDITIONAL REQUESTS OR COMPLAINTS. CALL LIGHT WITHIN REACH. BED RAILS UP.
--- NOTE | 2021-04-03 13:08 | NUR ---
THIS RN TO ROOM TO CHECK ON PT. VITALS AND ASSESSMENT DUE. GAUZE DRESSING TO RIGHT LOWER QUADRANT C/D/I. PT REPORTS 1/10 PAIN AND DENIES NEED FOR PAIN MEDICAITON AT THIS TIME. PT DENIES NAUSEA. TOELRATING PO FOOD AND FLUID. PT UP TO RESTROOM WITH STAND BY ASSIST. PT STEADY ON FEET AND DENIES DIZZINESS. PT VOIDS 300ML OF CLEAR YELLOW URINE. STAND BY ASSIST BACK TO BED. PT DRESSES SELF WITH ASSISTANCE FROM SANDHYA. PT AWIAITING DISCHARGE INSTRUCTIONS. CALL LIGHT WITHIN REACH. BED RAILS UP.
[2021-04-03] MEDS ORDERED: ADVIL200 MG PO (13:19)
[2021-04-03] MEDS ORDERED: OXYCODONE HCL10 MG PO (13:19)
[2021-04-03] MEDS ORDERED: TYLOPHEN500 MG PO (13:19)
--- NOTE | 2021-04-03 13:30 | NUR ---
PT READY FOR DISCHARGE. DISCHARGE INSTRUCTIONS REVIEWED WITH PT AND SANDHYA. PT AND SANDHYA VERBALIZE UNDERSTANDING OF INSTRUCTIONS, FOLLOW UP APPOINTMENT, MEDICAITONS, HOME WOUND AND DRESSING CARE, WHEN TO CALL THE DOCTOR, AND ACTIVITY RESTRICTIONS. PT CONTINUES TO DENY NEED FOR PAIN MEDICATION AT THIS TIME. DRESSING REMAINS C/D/I. PT TRANSFERS SELF TO WHEELCHAIR, NO ASSISTANCE NEEDED. PT FINISHED WITH 2ND PUDDING AND TAKING ONE FOR THE ROAD. ICE PACK PROVIDED FOR PT TO TAKE HOME. PT WHEELED FROM DAY SURGERY, NO ADDITIONAL REQUESTS OR CONCERNS.
--- NOTE | 2021-04-04 08:13 | OR ---
[facility] [address] [place], [place] [address] Signed DATE OF OPERATION: 04/03/2021 SURGEON: Manav Gil MD PREOPERATIVE DIAGNOSIS: Moderate to large reducible right inguinal hernia. POSTOPERATIVE DIAGNOSIS: Moderate to large reducible right indirect inguinal hernia. PROCEDURES: Right Soto onlay mesh inguinal herniorrhaphy. ESTIMATED BLOOD LOSS: None. 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 He had noticed a [id number] right inguinal hernia extending down into the top of his scrotum next to the testicle. He said it is becoming more painful. He said he can generally get it reduced. However, he is now having trouble just walking the dog and doing basic yard work. He has not been able to go to work and support himself and his family. Thankfully, his is working in contributing to the household. He had been to his primary care provider referred to my office. He clearly has a moderate to large right inguinal hernia. It took a few minutes to get it reduced when he was lying supine. We could hear the bowel inside and the air in the bowel as we reduced the hernia. He said there has been times when it was swollen to the point it made him vomit. He had to go in the house and lie down in gently massage area until he finally got it reduced. He said it has become a daily issue for him and has kept him from going to work. In the office, I gave Bill and his our brochure on hernias. We went through it very carefully. He understands the nature of an inguinal hernia. He understands the difference between a primary suture repair and a mesh repair. We also reviewed the expected intraop and postop course. He understands there is risk including, but not limited to bleeding, infection, scarring, change in contour of the skin, damage to the nerves, ischemic orchitis, recurrent hernias and chronic pain. He had expressed understanding and wished to proceed. DESCRIPTION OF PROCEDURE: I met with Bill and his in our preop area. It was very obvious to see his right inguinal hernia even lying supine through the sheets on the bed. We all agreed on the Electronically Signed By: MANAV GIL MD 04/04/21 0813 PATIENT NAME: BILL MENEZES OPERATIVE REPORT DATE OF : 57 REPORT #: [id number] PHYSICIAN: MANAV GIL MD PCP: BLANQUITA LONG NP REPORT IS CONFIDENTIAL AND NOT TO BE RELEASED WITHOUT AUTHORIZATION [address] [address] Signed right groin and marked it appropriately. After this, Bill was taken into our operating room and placed in the supine position under general endotracheal tube anesthesia. He was given preoperative antibiotics along with subcutaneous heparin. SCDs were utilized. He was then prepped and draped in the usual sterile fashion. We utilized a standard oblique incision over the right groin and carried it down to the tissue bluntly and with the cautery. The external oblique fascia was opened along its length both medially and laterally. The ilioinguinal, iliohypogastric nerves were visualized and protected throughout the case. He had quite a bit of scar tissue down near the pubic tubercle from his large hernia. It took a few minutes to dissect that all free. The cord was then elevated with the help of a Rose drain. He did have a small cord lipoma and that was suture ligated and amputated and passed off the field. He had definite weakness to the direct space as well. We had dissected out the anteromedial side of the cord structures and found his rather large but somewhat thin hernia sac. It took a while to dissect it free from the cord structures all the way down just way down past the pubic tubercle. We had to open the hernia sac. We could see the bowel within the abdomen. We then sutured ligated the neck of the hernia sac with 2-0 PDS pursestring suture. The distal portion of the sac was amputated and passed off the field. We then imbricated the floor of the inguinal canal with the help of a running 2-0 PDS suture starting at the pubic tubercle up to the level of deep ring. This help reduce his small direct space weakness/hernia. We then used a piece of flat Prolene mesh and we cut it to fit his groin and a slit was made in the mesh to accommodate the cord structures at the level of deep ring. It was held in place medially and laterally with help of running #1 Prolene suture. There was no undue tension of the mesh around the cord structures at the level of deep ring. Local anesthetic was copiously injected in the operative field. The wound was irrigated and suctioned out until clear. We closed the external oblique fascia over the repair with a running 2-0 PDS suture. Galen's fascia was reapproximated with running 3-0 Monocryl suture. The dermis was reapproximated with interrupted 3-0 subcuticular Monocryl sutures. The skin edges were reapproximated with a running 5-0 fast absorbing plain gut suture. Dry gauze and tape were then applied. Bill was awakened from his anesthesia, extubated in the OR, and taken to recovery room in stable condition. Manav Gil MD ALB/MODL /[id number] Electronically Signed By: MANAV GIL MD 04/04/2113 PATIENT NAME: BILL MENEZES OPERATIVE REPORT DATE OF : 57 REPORT #: [id number] PHYSICIAN: MANAV GIL MD PCP: BLANQUITA LONG NP REPORT IS CONFIDENTIAL AND NOT TO BE RELEASED WITHOUT AUTHORIZATION [address] [address] Signed cc: LAXMI Holden MD Copies: MANAV GIL MD ~ Electronically Signed By: MANAV GIL MD 04/04/2113 PATIENT NAME: BILL MENEZES OPERATIVE REPORT DATE OF : 57 REPORT #: [id number] PHYSICIAN: MANAV GIL MD PCP: BLANQUITA LONG NP REPORT IS CONFIDENTIAL AND NOT TO BE RELEASED WITHOUT AUTHORIZATION
== END 2021-04-03 13:40 | disposition home or self-care (01) ==
LOC: DS 08:50
PROVIDERS: ATTEND Colon & Rectal Surgery
PROC: 0YU50JZ Supplement Right Inguinal Region with Synthetic Substitute, Open Approach (ICD-10-PCS; principal; 2021-04-03 10:00)
DX: K40.90 Unilateral inguinal hernia, without obstruction or gangrene, not specified as recurrent (principal); I10 Essential (primary) hypertension; F12.10 Cannabis abuse, uncomplicated
CPT/HCPCS: 00830; C1781; J0330; J0690; J1100; J1644; J1885; J2250; J2405; J2704; J2765; J3010; J7121